=== PATIENT | male | born 2000 | race Hispanic/Latino ===

== ENCOUNTER 2024-07-06 17:01 | Emergency (ER) | payer SELFPAY ==
[~2024-07-06] VITALS: Ht 177.8 cm; Wt 113.4 kg
[2024-07-06] MEDS: LIDOCAINE HCL 1% LOCAL INJ 20 ML VIAL INJ STA (19:14)
[2024-07-06] MEDS: TETANUS/DIPHTHERIA TOX ADULT 0.5 ML SYR IM ONE (19:14)
[2024-07-06] MEDS ORDERED: CEPHALEXIN500 MG PO (19:35)
[2024-07-06] MEDS ORDERED: ULTRAM 50MG50 MG PO (19:35)
[2024-07-06] MEDS ORDERED: BACITRACIN ZINC 0.9GM TP ONE ×2 (19:43→19:48)
[2024-07-06] MEDS: BACITRACIN ZINC 0.9GM TP ONE (19:59)
[2024-07-06 20:00] VITALS: PULSE 79; RESP 16; TEMP 99.2; O2SAT 100
== END 2024-07-06 20:01 | disposition home or self-care (01) ==
LOC: ER 17:59
DX: S51.812A Laceration without foreign body of left forearm, initial encounter (principal); W26.8XXA Contact with other sharp object(s), not elsewhere classified, initial encounter; Y92.89 Other specified places as the place of occurrence of the external cause
CPT/HCPCS: 12035; 90471; 90714; 99284; J2003